=== PATIENT | female | born 2000 ===

== ENCOUNTER 2022-05-13 16:45 | Emergency (ER) | payer MEDICAID, SELFPAY ==
[2022-05-13] VITALS (12 sets, daily range): BP systolic 120–152; BP diastolic 55–110; PULSE 114–131; RESP 20; TEMP 37.9–38.8; O2SAT 97–100; BMI 37.8
--- NOTE | 2022-05-13 17:59 | ED.ABDPAIN ---
HPI - Abdominal Pain General Chief Complaint: Abdominal Pain Stated Complaint: Abdominal pain, vomiting yellow Time Seen by Provider: 05/13/22 17:41 History of Present Illness HPI narrative: This 21-year-old female comes in reporting nausea and vomiting and intermittent abdominal pain that began about 14 hours ago. She states that her abdominal pain resolved after vomiting. She is not currently reporting any pain in her abdomen but when it was there was in the left upper quadrant. She does arrive with tachycardia and a borderline fever. She denies having any dysuria or altered bowel function. She does not have any cough, headache, or shortness of breath. Related Data Allergies Allergy/AdvReac Type Severity Reaction Status Date / Time No Known Drug Allergies Allergy Verified 05/13/22 17:12 Review of Systems Status of ROS Reports: 10 or more systems reviewed and unremarkable except as noted in History and below Narrative Constitutional: No fevers, no weight gain or loss. Eyes: No discharge. No vision changes. HENT: No congestion, no sore throat, no ear pain. Cardiovascular: No chest pain, no palpitations. Respiratory: No shortness of breath, no wheezes, no cough. Gastrointestinal: Abdominal pain and vomiting as described above. No diarrhea. Genitourinary: No dysuria, no hematuria. Musculoskeletal: Normal range of motion. Skin: No rashes, no pruritis. Neurological: No dizziness, weakness, sensory change, speech change. Endo/Heme/Allergies: No bruising or bleeding. No polydipsia. Pysch: no suicidality, no anxiety, no insomnia. All other systems reviewed and are negative. PFSH PFS Social History Smoking Status: Never smoker Do you use any of these nicotine containing products: None Second hand tobacco smoke exposure: No How often do you have a drink containing alcohol: monthly or less How many standard drinks containing alcohol do you have on a typical day: 1 or 2 How often do you have six or more drinks on one occasion: Never AUDIT-C Alcohol total score: 1 Non-prescribed substance use: denies use Exam Narrative: Exam Narrative: Constitutional: Well-developed, well-nourished, no acute distress. HEENT: Normocephalic, atraumatic. Neck: Normal range of motion. Nontender. Supple. Heart: Regular. No murmurs. Tachycardia. Intact distal pulses. Lungs: Clear to auscultation. No chest discomfort. No wheezes, rhonchi, or rales. Abdomen: Normal bowel sounds. Nontender. No rebound tenderness. Genitalia: Deferred. Back: No midline tenderness. Normal range of motion. Extremities: Normal range of motion. No injury. Skin: Intact. No rash. Warm. No erythema or pallor. Neurologic: No altered sensation. No weakness. Alert and oriented. Psychiatric: No suicidality. No anxiety or depression. No insomnia. Nursing notes and vitals signs are reviewed. Const: Vital Signs, click to edit/add: Vital Signs - 24 hr 05/13/22 17:12 05/13/22 18:33 05/13/22 19:00 Temperature 100.3 F H Pulse Rate Pulse Rate [Pulse Oximeter] 126 H 120 H 120 H Respiratory Rate 20 20 20 Blood Pressure Blood Pressure [Le ft Forearm] 152/79 H 120/55 L 121/110 H Pulse Oximetry 98 97 97 Oxygen Delivery Me thod Room Air Room Air Room Air 05/13/22 19:30 05/13/22 19:37 05/13/22 19:45 Temperature Pulse Rate 126 H 127 H Pulse Rate [Pulse Oximeter] 131 H Respiratory Rate 20 Blood Pressure Blood Pressure [Le ft Forearm] 126/95 H Pulse Oximetry 99 97 98 Oxygen Delivery Me thod Room Air 05/13/22 20:00 05/13/22 20:02 05/13/22 20:15 Temperature Pulse Rate 117 H 123 H 117 H Pulse Rate [Pulse Oximeter] Respiratory Rate Blood Pressure 138/81 Blood Pressure [Le ft Forearm] Pulse Oximetry 98 100 100 Oxygen Delivery Me thod Course Vital Signs Vital signs: Initial Vital Signs Temperature 100.3 F H 05/13/22 17:12 Temperature Source Temporal Artery Scan 05/13/22 17:12 Pulse Rate 126 H 05/13/22 17:12 Pulse Rhythm 05/13/22 17:12 Respiratory Rate 20 05/13/22 17:12 Blood Pressure 152/79 H 05/13/22 17:12 Blood Pressure Mean 103 05/13/22 17:12 Blood Pressure Position Supine 05/13/22 17:12 Pulse Oximetry 98 05/13/22 17:12 Oxygen Delivery Method 05/13/22 17:12 Vital Signs Temperature 100.3 F H 05/13/22 17:12 Pulse Rate 126 H 05/13/22 17:12 Respiratory Rate 20 05/13/22 17:12 Blood Pressure 152/79 H 05/13/22 17:12 Pulse Oximetry 98 05/13/22 17:12 Oxygen Delivery Method 05/13/22 17:12 Temperature 100.3 F H 05/13/22 17:12 Pulse Rate 117 H 05/13/22 20:15 Respiratory Rate 20 05/13/22 19:30 Blood Pressure 138/81 05/13/22 20:02 Pulse Oximetry 100 05/13/22 20:15 Oxygen Delivery Method 05/13/22 19:30 MDM - Abdominal Pain MDM Narrative Medical decision making narrative: This patient comes in with vomiting and a borderline fever as described above. She does also have some tachycardia. She states that her mouth is dry. An IV was established where she received a L of normal saline and 4 mg of Zofran. She states that he she is feeling significantly better. Her heart rate is still a bit tachycardic but rest of her vital signs and labs are reassuring. Her white count is a bit elevated at around 13. Her lactate is in normal range. Lab Data Labs: Lab Results 05/13/22 05/13/22 05/13/22 Range/Units 18:15 18:15 18:15 WBC 13.58 H (4.50-11.00) K/uL RBC 5.71 H (4.00-5.20) m/uL Hgb 14.0 (12.0-16.0) gm/dL Hct 43.3 (33.0-51.0) % MCV 76 L (80-100) fL MCH 25 L (26-34) pg MCHC 32 (32-36) gm/dL RDW Coeff of Jason 14.0 (11.5-15.5) % Plt Count 236 (140-440) K/uL Neut % (Auto) 94.9 H (42.0-72.0) % Lymph % (Auto) 3.6 L (20-44) % Stanley % (Auto) 1.3 (0.0-11.0) % Eos % (Auto) 0.1 (0.0-7.0) % Baso % (Auto) 0.0 (0.0-3.0) % Neut # (Auto) 12.90 H (1.7-7.0) K/uL Lymph # (Auto) 0.50 L (0.90-2.90) K/uL Stanley # (Auto) 0.20 (0.00-0.90) K/UL Eos # (Auto) 0.00 (0.00-0.50) K/uL Baso # (Auto) 0.00 (0.00-0.30) K/uL Abs Immat Gran (auto) 0.01 (0.00-0.30) K/uL Sodium 137 (135-149) mmol/L Potassium 4.0 (3.6-5.1) mmol/L Chloride 102 (96-114) mmol/L Carbon Dioxide 24 (20-32) mmol/L BUN 16 (5-24) mg/dL Creatinine 0.7 (0.5-1.5) mg/dL Estimated Creat Clear 109.78 Estimated GFR 126 ml/min Glucose 121 H (60-115) mg/dL Lactate 1.4 (0.5-1.9) mmol/L Calcium 9.1 (8.4-10.6) mg/dL Lipase 52 (23-300) U/L Discharge Plan Discharge Clinical Impression: Gastroenteritis Patient Disposition: Home, Self-Care Condition: Stable Additional Instructions: Take medication as needed and indicated. Increase fluids and food as tolerated. Follow up with MD or return if worsening symptoms happen. Follow Up/Referrals: Eduardo Maravilla MD [Primary Care Provider] - Stand Alone Forms: [employer] Mobile Info Instructions
[2022-05-13 18:20] LABS: Lactate* 1.4 mmol/L (0.5-1.9)
[2022-05-13 18:22] LABS: Eosinophils Percent Auto 0.1 % (0.0-7.0); Hematocrit 43.3 % (33.0-51.0); Immature Granulocytes Abs Auto 0.01 K/uL (0.00-0.30); Lymphocytes Percent Auto 3.6 % (20-44); Mean Corpuscular HGB Conc 32 gm/dL (32-36); Mean Corpuscular Hemoglobin 25 pg (26-34); Mean Corpuscular Volume 76 fL (80-100); Monocytes Percent Auto 1.3 % (0.0-11.0); Neutrophils Percent Auto 94.9 % (42.0-72.0); Platelet Count* 236 K/uL (140-440); Red Blood Count 5.71 m/uL (4.00-5.20); White Blood Count* 13.58 K/uL (4.50-11.00)
[2022-05-13 18:24] LABS: Slide Review Reflex No
--- OUTSIDE RECORDS SUMMARY | 2022-05-13 18:24 | XMS_ITS | Clinical Summary ---
:2000 Author Organization [facility] [place] [address] Care Team Providers Name Role Phone Eduardo Maravilla MD Primary Care Provider Allergies No known active allergies Medications Medication Sig Dispensed Refills Start Date End Date Status fluticasone (50 mcg Inhale 2 Sprays to 16 g 2 11/06/2021 Active per actuation) nasal both nostrils once solution daily. (FLONASE)Indications: Nasal congestion doxycycline TAKE 1 CAPSULE BY 0 01/14/2022 Active monohydrate (MONODOX) MOUTH TWICE DAILY 100 mg capsule WITH NON-DAIRY FOOD, WATER, AND SUPPLEMENT WITH A PROBIOTIC. sulfacetamide-sulfur , WASH FACE ONCE 0 01/14/2022 Active 10 - 5%, (SULFACET-R) DAILY LATHER AND 10-5 % (w/w) clsr LET SIT FOR SEVERAL MINUTES BEFORE RINSING triamcinolone Apply topically to 80 g 0 03/27/2022 Active (ARISTOCORT; KENALOG) affected area(s) 2 0.1 % times daily. creamIndications: Dermatitis predniSONE (DELTASONE) Take 3 tabs daily 12 Tablet 0 2 Active 10 mg with food for 2 tabletIndications: days, then 2 Dermatitis tablets daily for 2 days, and then 1 tablet daily for 2 days. 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 11/06/2012 Encounters Date Type Specialty Care Team Description 03/27/2022 Office Visit Janet Booker, YOSELIN Derm Pro blem 03/26/2022 Travel 03/26/2022 Nurse Triage Eduardo Maravilla MD Rash from Last 3 Months Immunizations Name Administration Dates Next Due DTaP 01/13/2006, 12/11/2001, 03/11/2001, 01/06/2001, 2000 HIB HbOC (HibTITER) 12/11/2001, 2000 HIB-HepB (Comvax) 01/06/2001 Hepatitis A (Peds) 04/03/2015, 03/30/2014 Hepatitis B (Peds) 12/11/2001, 2000 Human Papilloma Virus Vaccine 05/27/2013, 02/05/2013, 2012 Inactivated Polio Vaccine 01/13/2006, 03/11/2001, 01/06/2001 , 2000 MMR 01/13/2006, 09/08/2001 Meningococcal Vaccine (Menveo) 04/09/2017, 03/30/2014 Pneumococcal conj 7-Valent (Prevnar 7) 09/08/2001, 1, 01/06/2001, 2000 Tdap 11/06/2012 Varicella Vaccine 05/26/2009, 09/08/2001 Family History Medical History Relation Name Comments No Known Problems Father No Known Problems Mother Relation Name Status Comments Father Mother Social History Tobacco Use Types Packs/Day Years Used Date Never Smoker Smokeless Tobacco: Never Used Tobacco Cessation: Counseling Given: Yes Comments: no exposure Alcohol Use Standard Drinks/Week Comments Never 0 (1 standard drink = 0.6 oz pure alcoho l) Alcohol Habits Answer Date Recorded How often do you have a drink containing alcohol? Never 03/16/2021 How many drinks containing alcohol do you have on a typical Not asked day when you are drinking? How often do you have six or more drinks on one occasion? No t asked Comment: Not asked Sex Assigned at Date Recorded Not on file Obstetrics History Para Term AB IAB SAB Ectopic Multiple Living Live Births 0 0 0 0 0 0 0 0 0 0 0 Last Filed Vital Signs Vital Sign Reading Time Taken Comments Blood Pressure 120/78 03/27/2022 7:02 PM CDT Pulse 74 03/27/2022 7:02 PM CDT Temperature 37.1 ??C (98.8 ??F) 03/27/2022 7:02 PM CDT Respiratory Rate 12 03/27/2022 7:02 PM CDT Oxygen Saturation 99% 03/27/2022 7:02 PM CDT Inhaled Oxygen Concentration - - Weight 110.6 kg (243 lb 12.8 oz) 03/27/2022 7:02 PM CDT Height 163.1 cm (5' 4.21) 11/06/2021 8:12 AM CDT Body Mass Index 41.57 11/06/2021 8:12 AM CDT Plan of Treatment Health Maintenance Due Date Last Done Comments Hepatitis C screening for age 18-79 09/07/2018 Depression screening for age 12+ 02/10/2019 02/10/2018, Pap test for age 21-65 09/07/2021 Influenza for age 9-49 04/11/2022 BMI (ht and wt on same day) for age 0311/06/2022 11/06/2021, 03/16/2021, 18+ 10/26/2020 Tetanus booster 11/06/2022 11/06/2012 Tdap Completed 11/06/2012 HPV series for age 9-26 Completed 05/27/2013, 02/05/2013, 11/06/2012 Meningococcal series for age 11-21 Completed 04/09/2017, 0 03/30/2014 COVID-19 vaccine series Completed 09/25/2021, 10/18/2020, 09/20/2020 Results Not on filefrom Last 3 Months Insurance Payer Benefit Plan / Subscriber ID Effective Dates Phone Addre ss Type Group ALKA LARSEN ALKA LARSEN [id number] 2021-Present [address] [place] [address] Care Teams 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
[2022-05-13] MEDS: ONDANSETRON 2 MG/ML inj 4 MG IVP (18:27)
[2022-05-13 18:45] LABS: Chloride* 102 mmol/L (96-114); Sodium* 137 mmol/L (135-149)
[2022-05-13 18:48] LABS: Blood Urea Nitrogen* 16 mg/dL (5-24); Carbon Dioxide* 24 mmol/L (20-32); Creatinine* 0.7 mg/dL (0.5-1.5); Est. Creatinine Clearance* 109.78; Estimated Glomerular Filt Rate 126 ml/min; Lipase* 52 U/L (23-300)
[2022-05-13 18:49] LABS: Calcium* 9.1 mg/dL (8.4-10.6); Glucose* 121 mg/dL (60-115)
[2022-05-13] MEDS: 0.9 % SODIUM CHLORIDE 1000 ml 1,000 ML IV (19:37)
--- NOTE | 2022-05-13 21:00 | ED.NURSE ---
PT has elevated temp. Dr Shetty updated. Will place order for covid/flu
[2022-05-13 22:10] LABS: PCR FLU A Negative PCR FLU A (Negative); PCR FLU B Negative PCR FLU B (Negative)
[2022-05-13 22:36] LABS: SARS PCR* Negative SARS-CoV-2 (Negative)
== END 2022-05-13 21:11 | disposition home or self-care (01) ==
PROVIDERS: Emergency Provider Emergency Medicine Emergency Medical Services; PCP Family Medicine
DX: K52.9 Noninfective gastroenteritis and colitis, unspecified (principal); R50.9 Fever, unspecified; R00.0 Tachycardia, unspecified
CPT/HCPCS: 36415; 80048; 83605; 83690; 85025; 87631; 93005; 96361; 96374; 99284; J2405; J7030